=== PATIENT | female | born 2000 | race Caucasian/White ===

== ENCOUNTER 2020-10-15 14:53 | Emergency (ER) | payer OTHER, SELFPAY ==
--- NOTE | 2020-10-15 15:04 | ED.DENTAL ---
HPI - Dental/Oral General Chief complaint: Dental/Oral Stated complaint: Tooth Pain Time Seen by Provider: 10/15/20 15:06 Source: patient and RN notes reviewed Mode of arrival: ambulatory Limitations: no limitations History of Present Illness HPI Narrative: 20-year-old presents to the [facility] with complaints of dental pain. [place] teeth are erupting and she noted to have skin over the wisdom tooth that is erupting to be red, swollen and a pus pocket. Area of concern to his right lower posterior molar. States that she sat at [facility] and was told there was no appointments available until early November, made her appointment, left. Teeth map: 1. Swelling noted to the inside of tooth 32 with redness and swelling. Small pus pocket noted. Related Data Allergies Allergy/AdvReac Type Severity Reaction Status Date / Time No Known Allergies Allergy Verified 10/15/20 15:04 Review of Systems Review of Systems: Narrative: CONSTITUTIONAL: Denies fever, chills, or sweats. EYES: Denies visual changes, redness, or discharge. ENT: Denies rhinorrhea, congestion, sore throat, or otalgia. Dental pain right lower posterior molar CARDIOVASCULAR: Denies chest pain, palpitations, or edema. RESPIRATORY: Denies cough or dyspnea. MUSCULOSKELETAL: Denies back pain, joint pain, or myalgia. NEUROLOGIC: Denies headache, numbness, or weakness. PSYCHIATRIC: Denies anxiety or depression. All other systems reviewed are negative, except as documented in HPI. PMFSH Social History Social History Gender identity (if verbalized by the patient): Female Comments At the time of my signature, I reviewed and agree with the nursing past medical, surgical, social, and family history. There is no relevant family history pertinent to the patient complaint. Exam Narrative: Exam Narrative: GENERAL: This is a well-nourished, well-developed patient, in no apparent distress. HEAD: normocephalic, atraumatic. EYES: PERRL. Sclera clear/white. Vision is grossly intact. EARS: External ears normal, auditory canals clear and without drainage, TMs normal without perforation. Hearing grossly intact. NOSE: External nose normal with no obvious nasal discharge, nares without redness, no rhinorrhea. THROAT: Mucous membranes moist, posterior pharynx clear. Tooth 32, tissue around tooth, molar, red, swollen tender to palpation NECK: Neck supple, non-tender without lymphadenopathy, masses or thyromegaly. CARDIOVASCULAR: Regular rate and rhythm without murmurs, gallops, or rubs. RESPIRATORY: Clear to auscultation. Breath sounds equal bilaterally. No wheezes, rales, or rhonchi. NEURO: awake, alert, and oriented to person, place and time. There were no obvious focal neurologic abnormalities. EXTREMITIES: No joint tenderness, effusion, or edema noted. BACK: Nontender without deformity. Course Vital Signs Vital signs: Vital Signs Temperature 99.6 F 10/15/20 15:08 Pulse Rate 73 10/15/20 15:08 Respiratory Rate 16 10/15/20 15:08 Blood Pressure 133/86 10/15/20 15:08 Pulse Oximetry 100 10/15/20 15:08 Temperature 99.6 F 10/15/20 15:08 Pulse Rate 73 10/15/20 15:08 Respiratory Rate 16 10/15/20 15:08 Blood Pressure 133/86 10/15/20 15:08 Pulse Oximetry 100 10/15/20 15:08 Reviewed MDM - Dental/Oral Differential Diagnosis Differential diagnosis: Likely gingival abscess, dental caries, toothache, dental abscess and other (Impacted wisdom tooth) Critical Care Time Critical Care Time Critical Care Time: No Discharge Plan Discharge Clinical Impression: Dental abscess Patient Disposition: Home, Self-Care Condition: Stable Instructions: Antibiotic Form, Dental Abscess (ED) Additional Instructions: Finish the entire course of antibiotics & use the mouthwash. After every time you eat be sure to use salt water gargles. Apply ice to face to help with pain. Dental problems can lead t
[2020-10-15 15:08] VITALS: BP 133/86; PULSE 73; RESP 16; TEMP 37.6; O2SAT 100
== END 2020-10-15 15:20 | disposition home or self-care (01) ==
PROVIDERS: Emergency Provider Nurse Practitioner
DX: K04.7 Periapical abscess without sinus (principal)
CPT/HCPCS: 99213; G0463

== ENCOUNTER 2021-08-08 15:39 | Emergency (ER) | payer OTHER, SELFPAY ==
[2021-08-08 15:41] VITALS: BP 123/71; PULSE 116; RESP 16; TEMP 37; O2SAT 100
[2021-08-08 16:00] VITALS: BP 122/70; PULSE 78; RESP 20; O2SAT 99
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
== END 2021-08-08 17:03 | disposition home or self-care (01) ==
PROVIDERS: Emergency Provider Emergency Medicine
DX: S29.012A Strain of muscle and tendon of back wall of thorax, initial encounter (principal); V49.50XA Passenger injured in collision with unspecified motor vehicles in traffic accident, initial encounter
CPT/HCPCS: 99283

== ENCOUNTER 2021-12-17 13:28 | Emergency (ER) | payer OTHER, SELFPAY ==
[2021-12-17 13:34] VITALS: BP 144/84; PULSE 110; RESP 21; TEMP 37.9; O2SAT 100
--- NOTE | 2021-12-17 13:37 | ED.URI ---
HPI - URI/Sore Throat General Chief Complaint: Upper Respiratory Infection Stated Complaint: Sore Throat Time Seen by Provider: 12/17/21 13:42 Source: patient, RN notes reviewed and old records reviewed Mode of arrival: ambulatory Limitations: no limitations History of Present Illness HPI Narrative: 21-year-old female presents to the [facility] with complaints of a sore throat. Reports taking [id number] products. Patient reports that she had a COVID test done at [facility] which she reports is negative. History of pharyngitis, tonsillitis. Has taken nothing today MD elicited complaint: sore throat Onset (ago): day(s) (3) Related Data Allergies Allergy/AdvReac Type Severity Reaction Status Date / Time No Known Allergies Allergy Verified 12/17/21 13:46 Review of Systems Review of Systems: All systems reviewed & are unremarkable except as noted in HPI and below Constitutional: Constitutional: Reports no additional constitutional complaints, Denies chills and Denies fever(s) Eyes: Eyes: Reports no additional eye complaints ENT: Reports as per HPI and Reports sore throat Cardiovascular: Cardiovascular: Reports no additional cardiovascular complaints Respiratory: Respiratory: Reports no additional respiratory complaints Gastrointestinal: Gastrointestinal: Reports no additional gastrointestinal complaints Musculoskeletal: Musculoskeletal: Reports no additional musculoskeletal complaints Integumentary/Breasts: Skin/Breast: Reports system reviewed and no additional complaints, except as docu Neurologic: Reports system reviewed and no additional complaints, except as documented Psychiatric: Psychiatric: Reports no additional psychiatric complaints Allergic/Immunologic: Allergic/Immunologic: Reports no additional allergic/immunologic complaints PMFSH Past Medical History Medical History (Updated 12/17/21 @ 19:08 by Krystina Villeda APRN) Patient denies medical problems Surgical History Surgical History (Updated 12/17/21 @ 19:05 by Krystina Villeda APRN) No pertinent past surgical history Social History Social History Gender identity (if verbalized by the patient): Female Comments At the time of my signature, I reviewed and agree with the nursing past medical, surgical, social, and family history. There is no relevant family history pertinent to the patient complaint. Exam Const: General: healthy appearing, no acute distress and alert Nutritional Appearance: well nourished Orientation/consciousness: patient oriented x3 Limitations: no limitations HENMT: Head: normal to inspection Ears: external ears normal, TM's normal bilaterally, EAC's normal and mastoids normal Throat: uvula midline, abnormal tonsil bilateral erythema, exudates and hypertrophy 2+ and posterior oropharynx abnormal erythema; no edema and no exudates Eyes: General: appearance normal, both eyes and all related structures Pupils: Equal, round and reactive pupils present Neck: Neck: normal visual inspection, no meningeal signs and lymphadenopathy bilateral submandibular soft (Enlarged) and tender Chest: Chest palpation & inspection: normal inspection of the chest Resp: Effort & Inspection: normal respiratory effort and no use of accessory muscles Auscultation: clear to auscultation bilaterally, no crackles, no rales, no rhonchi and no wheezes Cardio: Rate: regular rate Rhythm: regular rhythm GI: GI Palp: Yes Soft to palpation and No Tenderness to palpation present (GI) Back/Spine/Pelvis: Cervical Spine: normal cervical lordosis Thoracic/Lumbar Spine: thoracic and lumbar spine normal to inspection Skin: General skin exam: normal color Rashes: no rashes Wounds: no wounds Neuro: General: patient oriented x3, moves all extremities, no meningeal signs and no focal motor deficits Cranial nerves: Yes Equal, round and reactive pupils present Speech: normal speech Gait exam
== END 2021-12-17 14:30 | disposition home or self-care (01) ==
PROVIDERS: Emergency Provider Nurse Practitioner
DX: J03.90 Acute tonsillitis, unspecified (principal)
CPT/HCPCS: 36416; 86308; 87081; 87804; 87880; 99213; G0463